=== PATIENT | male | born 1965 | race Caucasian/White ===

== ENCOUNTER 2018-03-23 04:03 | Emergency (ER) | payer OTHER ==
[~2018-03-23] VITALS: Ht 190.5 cm; Wt 127.2 kg
[~2018-03-23 04:03] MED LIST: ALEVE220 MG PO; AZITHROMYCIN250 MG PO; CARDIZEM CD180 MG PO; DIGOXIN250 MCG PO; LOPRESSOR25 MG PO; MUCINEX1200 MG PO; PROAIR HFA8.5 GM IH; TESSALON PERLE100 MG PO; XARELTO20 MG PO
[2018-03-23 05:12] LABS: CHLORIDE 106 mEq/L (99-109); D-DIMER ELISA < 150.00 ng/mLDDU (<230); POTASSIUM 4.1 mEq/L (3.7-5.4); SODIUM 139 mEq/L (136-147)
[2018-03-23 05:14] LABS: GLUCOSE 108 mg/dL (70-99)
[2018-03-23 05:18] LABS: GFR ESTIMATE (CALCULATED) > 59 mL/min/ (58.99-99999)
[2018-03-23 05:19] LABS: UREA NITROGEN (BUN) 19 mg/dL (9-23)
[2018-03-23 05:27] LABS: TROP-I INTERPRETATION NEGATIVE; TROPONIN-I < 0.01 ng/mL (0.0-0.30)
[2018-03-23 05:30] LABS: HEMOGLOBIN 14.3 G/DL (12.5-16.6); MCH 32.4 PG (29.0-34.0); MCHC 34.9 G/DL (30.0-36.0); MCV 92.8 FL (86-99); PLATELET COUNT 225 K/uL (156-360); RBC DIS.WIDTH-CV 13.1 % (11.8-14.6); RBC DIS.WIDTH-SD 44.7 % (39-53); RED BLOOD COUNT 4.42 M/uL (4.00-5.50); WHITE BLOOD COUNT 5.3 K/uL (4.1-10.2)
[2018-03-23 06:02] VITALS: BP 143/88
== END 2018-03-23 06:02 | disposition home or self-care (01) ==
LOC: EME 04:03
PROVIDERS: Physician Assistant
DX: R00.2 Palpitations (principal); F41.9 Anxiety disorder, unspecified
CPT/HCPCS: 71046; 80048; 84484; 85027; 85379; 93005; 99281; 99284